=== PATIENT | female | born 1960 | race Caucasian/White ===

== ENCOUNTER 2018-02-22 21:54 | Emergency (ER) | payer OTHER ==
[~2018-02-22] VITALS: Ht 162.6 cm; Wt 69.4 kg
[2018-02-22 22:05] VITALS: Ht 162.6 cm; Wt 69.4 kg
[2018-02-22 23:24] LABS: CALCIUM 9.4 mg/dL (8.5-10.1); CARBON DIOXIDE 25.6 mmol/L (21-32); CHLORIDE SERUM 102 mmol/L (98-107); CREATININE SERUM 0.7 mg/dL (0.6-1.0); GFR1 > 60 mL/min; GLUCOSE SERUM 306 mg/dL (74-106); POTASSIUM SERUM 3.7 mmol/L (3.5-5.1); SODIUM SERUM 139 mmol/L (136-145)
[2018-02-23 00:40] VITALS: BP 140/71
== END 2018-02-23 00:40 | disposition home or self-care (01) ==
LOC: ED 21:54
PROVIDERS: Emergency Medicine
DX: G51.0 Bell's palsy (principal); E11.9 Type 2 diabetes mellitus without complications; Z88.1 Allergy status to other antibiotic agents
CPT/HCPCS: J7512

== ENCOUNTER 2019-03-12 17:30 | Inpatient (IN) | payer OTHER ==
[~2019-03-12] VITALS: Ht 162.6 cm; Wt 68.9 kg
[2019-03-12 17:34] VITALS: Ht 162.6 cm; Wt 68.9 kg
[2019-03-12 18:16] LABS: BASOPHIL % 0.6 % (0-2)
[2019-03-12 18:17] LABS: PLATELET COUNT 89 x10^3mcL (130-400); RED CELL DISTRIBUTION WIDTH 22.5 % (11.5-14.5)
[2019-03-12 18:37] LABS: rbc morphology (normal/abnorm) ABNORMAL (NORMAL)
[2019-03-12 18:42] LABS: CARBON DIOXIDE 27.8 mmol/L (21-32); CHLORIDE SERUM 99 mmol/L (98-107); GLUCOSE SERUM 161 mg/dL (74-106); POTASSIUM SERUM 3.5 mmol/L (3.5-5.1); SODIUM SERUM 139 mmol/L (136-145)
[2019-03-12 18:43] LABS: GFR1 9 mL/min
[2019-03-12 18:44] LABS: ALBUMIN 1.8 g/dL (3.4-5.0); ALT/SGPT 33 U/L (14-59); AST/SGOT 61 U/L (15-37); BILIRUBIN TOTAL 1.8 mg/dL (0.20-1.00)
[2019-03-12 18:45] LABS: ALKALINE PHOSPHATASE 327 U/L (46-116); FREE T4 1.32 ng/dL (0.76-1.46)
[2019-03-12 18:46] LABS: CALCIUM 5.8 mg/dL (8.5-10.1); CREATININE SERUM 5.1 mg/dL (0.6-1.0)
[2019-03-12] MEDS ORDERED: CRESTOR5 M1 PO ×2 (19:39)
[2019-03-12] MEDS ORDERED: PANTOPRAZOLE SO40 M1 PO (19:42)
[2019-03-12] MEDS ORDERED: GLIPIZIDE XL10 M1 PO (19:42)
[2019-03-12] MEDS ORDERED: ZOFRAN8 MG PO (19:42)
[2019-03-12] MEDS ORDERED: FEOSOL65 M1 PO (19:43)
[2019-03-12] MEDS ORDERED: DECADRON4 MG PO (19:44)
[2019-03-12] MEDS ORDERED: ZOVIRAX400 MG PO (19:44)
[2019-03-12] MEDS ORDERED: ELA50 PO (19:46)
[2019-03-12 20:42] LABS: MAGNESIUM 1.9 mg/dL (1.8-2.4)
[2019-03-12 20:43] LABS: CHOLESTEROL/HDL RATIO 9.8
[2019-03-12 23:14] VITALS: BP 126/84
[2019-03-13 06:13] VITALS: BP 108/77
[2019-03-13 06:56] LABS: BASOPHIL % 0.6 % (0-2)
[2019-03-13 06:59] LABS: PLATELET COUNT 66 x10^3mcL (130-400); RED CELL DISTRIBUTION WIDTH 22.5 % (11.5-14.5)
[2019-03-13 07:34] LABS: POTASSIUM SERUM 3.4 mmol/L (3.5-5.1)
[2019-03-13 07:35] LABS: CARBON DIOXIDE 26.4 mmol/L (21-32)
[2019-03-13 07:40] LABS: CALCIUM 5.3 mg/dL (8.5-10.1); CREATININE SERUM 5.2 mg/dL (0.6-1.0)
[2019-03-13 07:41] LABS: MAGNESIUM 2.1 mg/dL (1.8-2.4); PHOSPHOROUS 3.5 mg/dL (2.5-4.9)
[2019-03-13 09:00] VITALS: BP 111/68
[2019-03-13 12:34] VITALS: BP 102/68
[2019-03-13 18:15] VITALS: BP 103/57
[2019-03-13 20:17] VITALS: BP 100/64
[2019-03-14 00:55] VITALS: BP 99/59
[2019-03-14 05:09] VITALS: BP 102/66
[2019-03-14 07:05] LABS: BASOPHIL % 0.1 % (0-2)
[2019-03-14 07:12] LABS: PLATELET COUNT 66 x10^3mcL (130-400); RED CELL DISTRIBUTION WIDTH 22.3 % (11.5-14.5)
[2019-03-14 08:02] LABS: CALCIUM 6.1 mg/dL (8.5-10.1); CARBON DIOXIDE 29.2 mmol/L (21-32); MAGNESIUM 1.8 mg/dL (1.8-2.4); PHOSPHOROUS 2.7 mg/dL (2.5-4.9); POTASSIUM SERUM 3.7 mmol/L (3.5-5.1)
[2019-03-14 08:20] VITALS: BP 95/63
[2019-03-14 10:14] LABS: ALBUMIN 1.6 g/dL (3.4-5.0); BILIRUBIN DIRECT 1.39 mg/dL (0.0-0.2); BILIRUBIN TOTAL 1.73 mg/dL (0.20-1.00); TOTAL PROTEIN, SERUM 5.8 g/dL (6.4-8.2)
[2019-03-14 13:25] VITALS: BP 90/59
[2019-03-14 17:30] VITALS: BP 104/64
[2019-03-14 21:02] VITALS: BP 118/69
[2019-03-15] VITALS (10 sets, daily range): BP systolic 95–138; BP diastolic 53–75
[2019-03-15 06:42] LABS: BASOPHIL % 0.4 % (0-2)
[2019-03-15 06:49] LABS: PLATELET COUNT 58 x10^3mcL (130-400); RED CELL DISTRIBUTION WIDTH 22.8 % (11.5-14.5)
[2019-03-15 07:31] LABS: POTASSIUM SERUM 3.4 mmol/L (3.5-5.1)
[2019-03-15 07:35] LABS: CALCIUM 5.7 mg/dL (8.5-10.1)
[2019-03-15 07:36] LABS: PHOSPHOROUS 3.3 mg/dL (2.5-4.9)
[2019-03-15 07:58] LABS: ALBUMIN 2.1 g/dL (3.4-5.0); BILIRUBIN DIRECT 1.34 mg/dL (0.0-0.2); BILIRUBIN TOTAL 1.81 mg/dL (0.20-1.00)
[2019-03-15] MEDS ORDERED: LAC30L PO (16:33)
[2019-03-15] MEDS ORDERED: BG FS (16:35)
[2019-03-15 18:12] LABS: APPEARANCE FLUID HAZY; COLOR FLUID YELLOW; SOURCE FLUID ASCITES
[2019-03-15 18:13] LABS: LYMPHOCYTE FLUID 57 %; MONOCYTE FLUID 33 %; RBC FLUID 320 /cumm; WBC FLUID 37 /cumm
== END 2019-03-15 19:11 | disposition home or self-care (01) | DRG 466 ==
LOC: ED 17:30 → MU 20:14 → DU 20:14 → MU 03-15 10:22
PROVIDERS: Emergency Medicine; Internal Medicine Gastroenterology; ADMIT Internal Medicine
PROC: 5A1D70Z Performance of Urinary Filtration, Intermittent, Less than 6 Hours Per Day (ICD-10-PCS; principal; 2019-03-13)
PROC: 0W9G3ZZ Drainage of Peritoneal Cavity, Percutaneous Approach (ICD-10-PCS; 2019-03-15)
DX: T82.7XXA Infection and inflammatory reaction due to other cardiac and vascular devices, implants and grafts, initial encounter (principal); I12.0 Hypertensive chronic kidney disease with stage 5 chronic kidney disease or end stage renal disease; K72.00 Acute and subacute hepatic failure without coma; R65.21 Severe sepsis with septic shock; A41.9 Sepsis, unspecified organism; G93.41 Metabolic encephalopathy; C90.00 Multiple myeloma not having achieved remission; R18.8 Other ascites; E11.65 Type 2 diabetes mellitus with hyperglycemia; D50.9 Iron deficiency anemia, unspecified; K74.60 Unspecified cirrhosis of liver; E03.9 Hypothyroidism, unspecified; E87.6 Hypokalemia; Y83.8 Other surgical procedures as the cause of abnormal reaction of the patient, or of later complication, without mention of misadventure at the time of the procedure; E11.22 Type 2 diabetes mellitus with diabetic chronic kidney disease; N18.6 End stage renal disease; D63.0 Anemia in neoplastic disease; E78.5 Hyperlipidemia, unspecified; E83.51 Hypocalcemia; Z99.2 Dependence on renal dialysis; Z68.24 Body mass index [BMI] 24.0-24.9, adult; Z79.84 Long term (current) use of oral hypoglycemic drugs; Z88.1 Allergy status to other antibiotic agents; Y92.128 Other place in nursing home as the place of occurrence of the external cause; Z79.899 Other long term (current) drug therapy; Z78.1 Physical restraint status
CPT/HCPCS: 49083; 82962; 83880; 84439; 87116; 87206; 88344; 97116-GP; 97530-GP; G0378; G0480; J1815; J2001; J2060; J2543; J3370; J7030; P9047; Q0092